=== PATIENT | female | born 1985 | race Hispanic/Latino ===

== ENCOUNTER 2025-09-27 12:56 | Emergency (ER) | payer OTHER, SELFPAY ==
[2025-09-27] VITALS (12 sets, daily range): BP systolic 114–178; BP diastolic 74–114; PULSE 76–85; BMI 24.7
[2025-09-27] MEDS: ATIVAN 0.5 MG PO (16:50)
--- NOTE | 2025-09-27 17:03 | ED.GENMED ---
History of Present Illness
General
Chief Complaint: Seizure
Source: patient
Exam Limitations: none
Time Seen by Provider: 09/27/25 16:12
Nursing documentation reviewed up to this point in time: agreed with
History of Present Illness
History of Present Illness:
39-year-old female past medical history of vagal nerve dysfunction dysautonomia PCOS presenting to the emergency department today with concerns of shakiness that been ongoing for at least 10 years slightly worse more recently. Has been taking
vitamins and minerals to help with symptoms which have not been working recently. No longer has any neurologist that she follows with did have multiple neurologist in the past that seemingly were not able to help her currently she denies any
specific chest pain fevers nausea vomiting changes in bowel movements. She does feel shaky and does intermittently feel some lightheadedness and tingling of her face bilaterally.
Review of Systems
Review of Systems
Allergies reviewed?: Yes
All Other Systems: ROS reviewed and negative except as documented in HPI and ROS
Phy Exam
Physical Exam
Physical Exam:
GENERAL: Alert , in no apparent distress
EYE: pupils equal and reactive
NECK: Supple, no significant adenopathy.
ENT: o/p clr, mmm.
CARDIAC: Regular rate and rhythm .
LUNGS: Clear breath sounds bilaterally, no acute respiratory distress, no wheezes/rales/rhonchi
ABDOMEN: Soft, without focal tenderness, no r/g, no cvat
NEUROLOGICAL: Alert and oriented, no focal neuro deficits 5-5 upper and lower extremity strength normal sensation with palpating bilaterally normal nvhlmv-gb-owym and hllg-ye-cvup no pronator drift.
SKIN: Warm and dry, skin intact.
MUSCULOSKELETAL: No edema, well perfused.
PSYCH: Normal and appropriate interaction.
Course
Orders/Labs/Results
Orders:
Orders
09/27/25 16:36
CT Head W/o Iv Contrast Urgent
Comment:
Reason For Exam: facial numbness
Lorazepam [Ativan] 1 mg PO NOW STA
09/27/25 16:37
Electrocardiogram (*1) Stat
Reason for Study: Other
Other Reason for Exam: neuro symptoms
EKG- Treatment ONCE
09/27/25 16:39
Test Result ONCE
09/27/25 16:41
Lorazepam [Ativan] 0.5 mg PO NOW STA
09/27/25 16:51
Complete Blood Count/With Diff Urgent
Comprehensive Metabolic Panel Urgent
HCG, Serum Qualitative Screen Urgent
09/27/25 18:05
Orthostatic VS- Treatment ONCE
Abnormal Lab Results
09/27/25
16:51
MCH 31.6 H pg
(27.0-31.0)
09/27/25 16:51
09/27/25 16:51
Vital Signs
Initial and Last Documented VS:
Initial Vital Signs
Temp Pulse Resp BP Pulse Ox
98.5 F 113 16 178/114 100
09/27/25 13:06 09/27/25 13:06 09/27/25 13:06 09/27/25 13:06 09/27/25 13:06
Last Documented Vital Signs
Temp Pulse Resp BP Pulse Ox
98 F 81 20 122/78 100
09/27/25 18:00 09/27/25 19:30 09/27/25 19:30 09/27/25 19:00 09/27/25 19:30
MDM/Problems Addressed
MDM/Problems Addressed:
39-year-old female presenting to the emergency department today with concerns of shakiness diffuse been intermittent over the past 10 years. Slowly worsening recently. Does not take any daily meds other than vitamins and minerals. On arrival
mildly tachycardic but improving without specific treatment. CT scan normal labs unremarkable patient no distress throughout ER stay. Stable for close outpatient follow-up. Return precautions given.
*Pulse Oximetry
SaO2: 100
Oxygen Mode of Delivery: Room air
Patient hypoxic: no (100)
*Critical Care Note
Total Time (30-74mins, 75-104mins- exclusive of procedures): Not Applicable
ED Attending Note
-
Portions of this chart may have been created with voice recognition software.� Occasional wrong word or��sound alike� substitutions may have occurred due to the inherent limitations of voice recognition software.
Discharge Plan
Departure
Patient Disposition: Home (Routine Discharge)
Date of Disposition: 09/27/25
Time of Disposition: 19:49
Patient with high blood pressure during this ER visit?: No
Condition: Good
Covid-19: Not Applicable
Discharge Problem:
Neurological symptoms
Prescriptions:
New
hydroxyzine HCl 25 mg tablet
25 mg PO TID PRN (Reason: nausea and vomiting) Qty: 7 0RF
Referrals:
Nydia Levin MD [Non-Admitting Privileges, Psychiatry] - Follow up in 5-7 days
Clayton Parry MD [Family Provider, Family Practice]
Activity Restrictions/Additional Instructions:
You came to the emergency department today with concerns of multiple neurologic symptoms. Here you had a reassuring assessment emergent process but you will need close outpatient follow-up for further assessment. Return for any worsening, new or
concerning symptoms.
Interventions
Interventions:
*Risk Screen - Suicide Last Done: 09/27/25 15:08
*General Assessment Last Done: 09/27/25 15:08
*Neglect/Abuse Screening Last Done: 09/27/25 15:08
*ED- Fall Risk Assessment Last Done: 09/27/25 15:08
ED- Cardiac Assessment Last Done: 09/27/25 15:08
ED- Neurological Assessment Last Done: 09/27/25 15:08
ED- Pulmonary Assessment Last Done: 09/27/25 15:08
Discharge Date and Time
Print Language: IRANIAN
[2025-09-27 17:11] LABS: Hematocrit 38.5 % (37.0-47.0); Hemoglobin 13.6 g/dL (12.0-16.0); Mean Corp Hgb Conc. 35.3 g/dL (33.0-37.0); Mean Corpuscular Volume 89.5 fL (81.0-99.0); Nucleated Red Blood Cells % 0 %; Platelet Count 289 10^3/uL (130-400); Red Cell Dist. Width 12.7 % (11.5-14.5)
[2025-09-27 17:26] LABS: HCG, Serum Qualitative Screen Negative
[2025-09-27 17:32] LABS: ALT (SGPT) 14 U/L (0-35); AST (SGOT) 17 U/L (14-36); Albumin 4.3 g/dl (3.5-5.0); Alkaline Phosphatase 60 U/L (38-126); Blood Urea Nitrogen 16 mg/dl (7-17); Calcium 9.6 mg/dl (8.4-10.2); Carbon Dioxide 26 mmol/L (22-30); Chloride 103 mmol/L (98-107); Estimated Creatinine Clearance > 125 ml/min; Glucose 95 mg/dl (70-99); Potassium 3.9 mmol/L (3.5-5.1); Sodium 136 mmol/L (135-145); Total Protein 6.9 g/dl (6.3-8.2); eGFR > 60.00
== END 2025-09-27 19:55 | disposition home or self-care (01) ==
LOC: EMR 12:56
PROVIDERS: Physician Assistant; EMERGENCY PHYSICIAN Student in an Organized Health Care Education/Training Program; FAMILY PHYSICIAN Family Medicine
DX: R25.1 Tremor, unspecified (principal); G52.2 Disorders of vagus nerve; G90.1 Familial dysautonomia [Riley-Day]; E28.2 Polycystic ovarian syndrome
CPT/HCPCS: 99284; 70450; 80053; 84703; 85025; 93005